=== PATIENT | female | born 1950 | race Caucasian/White ===

== ENCOUNTER 2018-02-15 10:52 | Outpatient (CLI) | payer MEDICARE, BC | END 2018-02-15 10:53 | disposition home or self-care (01) | LOC: BICMAMMO 10:52 | PROVIDERS: ATTEND Obstetrics & Gynecology | DX: Z12.31 Encounter for screening mammogram for malignant neoplasm of breast (principal); R92.1 Mammographic calcification found on diagnostic imaging of breast; Z80.3 Family history of malignant neoplasm of breast | CPT/HCPCS: 77063; 77067 ==

== ENCOUNTER 2019-04-25 10:17 | Outpatient (CLI) | payer MEDICARE, BC ==
--- NOTE | 2019-04-25 13:09 | MMO ---
Bilateral MAMMO Bilat Screen [facility]. CLINICAL HISTORY: Patient is 68 years old and is seen for screening. The patient has the following family history of breast cancer: cousin female, at age 25; cousin female, at age 49 and paternal aunt, at age 60. The patient has no personal history of cancer. The patient has a history of left Excisional Biopsy in 2006 - benign. VIEWS: The views performed were: bilateral craniocaudal with tomosynthesis and bilateral mediolateral oblique with tomosynthesis. FILMS COMPARED: The present examination has been compared to prior imaging studies performed at [facility] on 02/17/2014, 06/26/2015, 06/30/2016 and 02/15/2018. MAMMOGRAM FINDINGS: There are scattered fibroglandular densities. There are no suspicious masses, suspicious calcifications, or new areas of architectural distortion. IMPRESSION: THERE IS NO MAMMOGRAPHIC EVIDENCE OF MALIGNANCY. A ROUTINE FOLLOW-UP MAMMOGRAM IN 1 YEAR IS RECOMMENDED. THE RESULTS OF THIS EXAM WERE SENT TO THE PATIENT. ACR BI-RADS Category 1 - Negative MAMMOGRAPHY NOTE: 1. A negative mammogram report should not delay a biopsy if a dominant of clinically suspicious mass is present. 2. Approximately 10% to 15% of breast cancers are not detected by mammography. 3. Adenosis and dense breasts may obscure an underlying neoplasm. Reported by: Lynda BARRIOS Electonically Signed: [id number]
== END 2019-04-25 10:18 | disposition home or self-care (01) ==
LOC: BICMAMMO 10:17
PROVIDERS: ATTEND Family Medicine
DX: Z12.31 Encounter for screening mammogram for malignant neoplasm of breast (principal); Z80.3 Family history of malignant neoplasm of breast
CPT/HCPCS: 77063; 77067

== ENCOUNTER 2020-05-01 10:39 | Outpatient (CLI) | payer MEDICARE, BC ==
--- NOTE | 2020-05-01 11:59 | MMO ---
Bilateral MAMMO Bilat Screen [facility]. CLINICAL HISTORY: Patient is 69 years old and is seen for screening. The patient has the following family history of breast cancer: cousin female, at age 25; cousin female, at age 49 and paternal aunt, at age 60. The patient has no personal history of cancer. The patient has a history of left Excisional Biopsy in 2006 - benign. VIEWS: The views performed were: bilateral craniocaudal with tomosynthesis and bilateral mediolateral oblique with tomosynthesis. FILMS COMPARED: The present examination has been compared to prior imaging studies performed at [facility] on 06/26/2015, 06/30/2016, 02/15/2018 and 04/25/2019. This study has been interpreted with the assistance of computer-aided detection. MAMMOGRAM FINDINGS: There are scattered fibroglandular densities. There are stable benign appearing calcifications seen in both breasts. There are no suspicious masses, suspicious calcifications, or new areas of architectural distortion. IMPRESSION: THERE IS NO MAMMOGRAPHIC EVIDENCE OF MALIGNANCY. A ROUTINE FOLLOW-UP MAMMOGRAM IN 1 YEAR IS RECOMMENDED. THE RESULTS OF THIS EXAM WERE SENT TO THE PATIENT. ACR BI-RADS Category 2 - Benign finding MAMMOGRAPHY NOTE: 1. A negative mammogram report should not delay a biopsy if a dominant of clinically suspicious mass is present. 2. Approximately 10% to 15% of breast cancers are not detected by mammography. 3. Adenosis and dense breasts may obscure an underlying neoplasm. Reported by: JOELLEN ROY MD Electonically Signed: [id number]
== END 2020-05-01 10:40 | disposition home or self-care (01) ==
LOC: BICMAMMO 10:39
PROVIDERS: ATTEND Obstetrics & Gynecology
DX: Z12.31 Encounter for screening mammogram for malignant neoplasm of breast (principal); Z91.89 Other specified personal risk factors, not elsewhere classified; Z80.3 Family history of malignant neoplasm of breast
CPT/HCPCS: 77063; 77067

== ENCOUNTER 2021-05-13 10:16 | Outpatient (CLI) | payer MEDICARE, BC | END 2021-05-13 10:17 | disposition home or self-care (01) | LOC: BICMAMMO 10:16 | PROVIDERS: ATTEND Family Medicine | DX: Z12.31 Encounter for screening mammogram for malignant neoplasm of breast (principal); Z91.89 Other specified personal risk factors, not elsewhere classified; Z80.3 Family history of malignant neoplasm of breast | CPT/HCPCS: 77063; 77067 ==

== ENCOUNTER 2022-05-15 10:48 | Outpatient (CLI) | payer MEDICARE, BC | END 2022-05-15 10:49 | disposition home or self-care (01) | LOC: BICMAMMO 10:48 | PROVIDERS: ATTEND Family Medicine | DX: Z12.31 Encounter for screening mammogram for malignant neoplasm of breast (principal); R92.1 Mammographic calcification found on diagnostic imaging of breast; Z80.3 Family history of malignant neoplasm of breast; Z91.89 Other specified personal risk factors, not elsewhere classified | CPT/HCPCS: 77063; 77067 ==

== ENCOUNTER 2022-08-12 09:56 | Outpatient (CLI) | payer MEDICARE, BC | END 2022-08-12 09:57 | disposition home or self-care (01) | LOC: BICMAMMO 09:56 | PROVIDERS: ATTEND Nurse Practitioner Family | DX: Z13.820 Encounter for screening for osteoporosis (principal); Z78.0 Asymptomatic menopausal state | CPT/HCPCS: 77080 ==

== ENCOUNTER 2023-01-26 11:54 | Outpatient (CLI) | payer MEDICARE, BC | END 2023-01-26 11:55 | disposition home or self-care (01) | LOC: BICRAD 11:54 | PROVIDERS: ATTEND Nurse Practitioner Family | DX: M25.571 Pain in right ankle and joints of right foot (principal) ==

== ENCOUNTER 2023-06-05 09:53 | Outpatient (CLI) | payer MEDICARE, BC | END 2023-06-05 09:54 | disposition home or self-care (01) | LOC: BICMAMMO 09:53 | PROVIDERS: ATTEND Nurse Practitioner Family | DX: Z12.31 Encounter for screening mammogram for malignant neoplasm of breast (principal); Z80.3 Family history of malignant neoplasm of breast; Z91.89 Other specified personal risk factors, not elsewhere classified | CPT/HCPCS: 77063; 77067 ==

== ENCOUNTER 2023-07-14 10:29 | Outpatient (CLI) | payer MEDICARE, BC | END 2023-07-14 10:30 | disposition home or self-care (01) | LOC: BICRAD 10:29 | PROVIDERS: ATTEND Nurse Practitioner Family | DX: M54.50 Low back pain, unspecified (principal); M25.552 Pain in left hip; M47.816 Spondylosis without myelopathy or radiculopathy, lumbar region | CPT/HCPCS: 36415; 72100; 80053; 80061; 83036 ==

== ENCOUNTER 2023-09-07 09:09 | Emergency (ER) | payer MEDICARE, BC | END 2023-09-07 10:42 | disposition home or self-care (01) | LOC: ERS 09:09 | DX: S63.616A Unspecified sprain of right little finger, initial encounter (principal); S63.614A Unspecified sprain of right ring finger, initial encounter; E11.9 Type 2 diabetes mellitus without complications; W18.30XA Fall on same level, unspecified, initial encounter ==

== ENCOUNTER 2023-09-17 16:45 | Emergency (ER) | payer OTHER, MEDICARE, BC ==
[2023-09-17] MEDS ORDERED: Lidocaine 1% w/Epinephrine 1:100K 20 ML VIAL ONE (17:47)
[2023-09-17] MEDS ORDERED: Boostrix 0.5 ML (Tdap) VIAL (>/=7 yrs of age) ONE (17:52)
[2023-09-17] MEDS ORDERED: Bacitracin 1 PK ONE (18:01)
== END 2023-09-17 19:48 | disposition home or self-care (01) ==
LOC: ERS 16:45
DX: S01.111A Laceration without foreign body of right eyelid and periocular area, initial encounter (principal); E11.9 Type 2 diabetes mellitus without complications; W01.198A Fall on same level from slipping, tripping and stumbling with subsequent striking against other object, initial encounter; Z23 Encounter for immunization; Z79.899 Other long term (current) drug therapy
CPT/HCPCS: 12011; 70450; 70486; 72125; 90471; 90715

== ENCOUNTER 2024-10-05 13:44 | Outpatient (CLI) | payer MEDICARE ==
[2024-10-05 15:57] LABS: #Basophils 0.04 10x3/uL (0.0-0.2); %Basophils 0.5 % (0.0-1.0); %Eosinophils 0.9 % (0.0-10.0); %Lymphocytes 21.3 % (21.0-51.0); %Monocytes 7.9 % (0.0-10.0); Hematocrit 44.2 % (36.0-47.0); Hemoglobin 14.3 g/dL (12.0-16.0); Mean Corpuscular HGB CONC 32.4 g/dL (32.0-36.0); Mean Corpuscular Hemoglobin 30.7 pg (27.0-31.0); Mean Corpuscular Volume 94.8 fL (78.0-98.0); Mean Platelet Volume 10.5 fL (7.4-10.4); Platelet Count 281 10x3/uL (130-400); RBC Distribution Width 14.2 % (11.5-14.5); Red Blood Cell (RBC) Count 4.66 mill/uL (4.20-5.40)
[2024-10-05 16:30] LABS: Calc. Creatinine Clearance 0 mL/min (70-130); Estimated GFR 85
[2024-10-05 16:31] LABS: Anion Gap 14 mmol/L (10-20); BUN (Urea Nitrogen) 21 mg/dL (9.8-20.1); Calcium 9.7 mg/dL (7.8-10.44); Carbon Dioxide 23 mmol/L (23-31); Chloride 108 mmol/L (98-107); Glucose 228 mg/dL (83-110); Sodium 141 mmol/L (136-145)
== END 2024-10-05 13:45 | disposition home or self-care (01) ==
LOC: LABBT 13:44
PROVIDERS: ATTEND Orthopaedic Surgery Hand Surgery
DX: Z01.818 Encounter for other preprocedural examination (principal); M19.131 Post-traumatic osteoarthritis, right wrist; M25.831 Other specified joint disorders, right wrist; M24.131 Other articular cartilage disorders, right wrist; S63.8X1A Sprain of other part of right wrist and hand, initial encounter
CPT/HCPCS: 80048; 85025; 93005; 93010

== ENCOUNTER 2024-10-14 08:16 | Inpatient (IN) | payer MEDICARE ==
[2024-10-14] MEDS ORDERED: PROPOFOL 20 ML ONE ×2 (09:10→16:49)
[2024-10-14] MEDS ORDERED: Ondansetron PF 4 MG/2 ML Vial ONE (09:10)
[2024-10-14] MEDS ORDERED: Lidocaine 1% PF 5 ML VIAL ONE (09:10)
[2024-10-14] MEDS ORDERED: Vancomycin (BATCH) 300 ML ONE (09:23)
[2024-10-14] MEDS ORDERED: Famotidine/PF 20 mg/2ml Vial ONE (09:23)
[2024-10-14] MEDS ORDERED: Bupivacaine PF 0.5% 30 ML VIAL ONE (09:41)
[2024-10-14] MEDS ORDERED: Midazolam HCl 2 mg/2 ml Vial ONE (09:41)
[2024-10-14] MEDS ORDERED: fentaNYL 50 mcg/mL 1 mL Vial ONE ×2 (09:41→18:14)
[2024-10-14] MEDS ORDERED: Dexmedetomidine 200 MCG/2 ML VIAL ONE (10:13)
[2024-10-14] MEDS ORDERED: Clindamycin/D5W 900 mg/50 ml Premix Bag ONE (10:15)
[2024-10-14] MEDS ORDERED: Rocuronium Bromide 10 MG/ML (10ML VIAL) ONE ×2 (10:33→15:03)
[2024-10-14] MEDS ORDERED: PHENYLEPHRINE-NS 100 MCG/ML 10 ML SYRINGE ONE ×2 (10:53→13:04)
[2024-10-14] MEDS ORDERED: EPINEPHrine 1 MG/ML VIAL ONE (11:04)
[2024-10-14] MEDS ORDERED: Bacitracin Zinc Ointment 30 gm TUBE ONE (11:04)
[2024-10-14] MEDS ORDERED: Dexamethasone 4 mg/ml Vial ONE (11:27)
[2024-10-14] MEDS ORDERED: ePHEDrine Sulfate 50 MG/10 ML VIAL ONE ×2 (11:29→15:15)
[2024-10-14] MEDS ORDERED: Vancomycin 1 GM VIAL ONE ×2 (15:06→15:31)
[2024-10-14] MEDS ORDERED: fentaNYL PF 100 MCG/2 ML SYRINGE ONE (15:30)
[2024-10-14] MEDS ORDERED: Morphine 2 MG/ML VIAL SLOW IVP PRN (15:41)
[2024-10-14] MEDS ORDERED: Ondansetron PF 4 MG/2 ML Vial SLOW IVP PRN (15:41)
[2024-10-14] MEDS ORDERED: Morphine 4 MG/ML VIAL SLOW IVP PRN (15:41)
[2024-10-14] MEDS ORDERED: Meperidine HCl/PF 25 MG (1 mL) VIAL IM PRN (15:45)
[2024-10-14] MEDS ORDERED: Communication Order-Pharmacy FS SCH (15:45)
[2024-10-14] MEDS ORDERED: SUGAMMADEX SODIUM 200 MG/2 ML VIAL ONE (16:51)
[2024-10-14] MEDS ORDERED: Albuterol 1.25 MG (3 mL) NEB NEB PRN (17:31)
[2024-10-14] MEDS: Aspirin 81 mg Enteric Coated Tablet PO SCH (21:00)
[2024-10-14] MEDS: Atorvastatin Calcium 20 MG TAB PO SCH (21:00)
[2024-10-14] MEDS ORDERED: Vancomycin 1 GM in Premix 1 BAG IVPB SCH (21:00)
[2024-10-15 01:55] VITALS: BMI 38.1
[2024-10-15] MEDS: Vancomycin HCl 750 MG in Sodium Chloride 0.9% 250 ML 250 ML IVPB SCH (04:48)
[2024-10-15] MEDS: glipiZIDE 5 MG TAB PO SCH (06:18)
[2024-10-15] MEDS: HYDROcodone/Acetaminophen 5/325 mg Tablet PO PRN (06:18)
[2024-10-15] MEDS: TETANUS, DIPHTHERIA TOX,ADULT (TDVAX) 0.5 ML VIAL IM ONE (07:32)
[2024-10-15] MEDS: Lisinopril 20 MG TAB PO SCH (07:57)
[2024-10-15] MEDS: Empagliflozin 25 MG TAB PO SCH (07:57)
[2024-10-15 08:16] VITALS: BP 105/65; TEMP 97.5
[2024-10-15] MEDS: traMADol HCl 50 MG TAB PO PRN (09:41)
[2024-10-19] MEDS ORDERED: SEMAGLUTIDE 2 MG/0.75 ML SC SCH (09:00)
== END 2024-10-15 12:16 | disposition home or self-care (01) | DRG 502 ==
LOC: SDC 08:16 → SURG B 15:45
PROVIDERS: ADMIT Orthopaedic Surgery Hand Surgery; ATTEND Orthopaedic Surgery Hand Surgery
PROC: 0LQ50ZZ Repair Right Lower Arm and Wrist Tendon, Open Approach (ICD-10-PCS; principal; 2024-10-14)
PROC: 0RGN07Z Fusion of Right Wrist Joint with Autologous Tissue Substitute, Open Approach (ICD-10-PCS; 2024-10-14)
PROC: 0RBN0ZZ Excision of Right Wrist Joint, Open Approach (ICD-10-PCS; 2024-10-14)
DX: S63.521A Sprain of radiocarpal joint of right wrist, initial encounter (principal); M65.941 Unspecified synovitis and tenosynovitis, right hand; Z98.51 Tubal ligation status; Z98.890 Other specified postprocedural states; Z79.899 Other long term (current) drug therapy
CPT/HCPCS: 36416; C1713; C1894; J0171; J0665; J1100; J2250; J2405; J2704; J3010; J3370; J3490; J7050